=== PATIENT | male | born 1995 | race Caucasian/White ===

== ENCOUNTER 2020-01-09 07:24 | Outpatient (CLI) | payer OTHER ==
--- NOTE | 2020-01-09 09:19 | MRI ---
Exam: Pelvis MRI without IV contrast: HISTORY: Sports hernia, left groin pain for about 4 months FINDINGS: There is a small thin focus of abnormal T2 hyperintensity at the insertion of the left common adducto r tendon. No evidence for abnormal marrow signal. No evidence for adjacent peritendinous or intramuscular strain. No evidence for associated osteitis pubis. IMPRESSION: Small linear focus of stripping or tearing of the left common adductor tendon pubis insertion. No nicolle dence for associated abnormal marrow signal or peritendinous or intramuscular strain.
== END 2020-01-09 07:25 | disposition home or self-care (01) ==
LOC: BICMRI 07:24
PROVIDERS: ATTEND Surgery
DX: S39.81XA Other specified injuries of abdomen, initial encounter (principal)
CPT/HCPCS: 72195

== ENCOUNTER 2020-01-15 06:13 | Outpatient (CLI) | payer OTHER ==
[2020-01-15 10:54] LABS: #Monocytes 0.6 thou/uL (0.11-0.59); #Neutrophils 7.2 thou/uL (1.40-6.50); %Basophils 0.3 % (0.0-1.0); %Eosinophils 0.4 % (0.0-10.0); %Lymphocytes 20.3 % (21.0-51.0); %Monocytes 6.3 % (0.0-10.0); %Neutrophils 72.7 % (42.0-75.0); Hemoglobin 14.9 g/dL (14.0-18.0); Mean Corpuscular HGB CONC 34.1 g/dL (32.0-36.0); Mean Corpuscular Hemoglobin 30.3 pg (27.0-31.0); Mean Platelet Volume 8.1 fL (7.4-10.4); Platelet Count 233 thou/uL (130-400); RBC Distribution Width 11.4 % (11.5-14.5); Red Blood Cell (RBC) Count 4.93 mill/uL (4.70-6.10); White Blood Cell (WBC) Count 9.9 thou/uL (4.8-10.8)
== END 2020-01-15 06:14 | disposition home or self-care (01) ==
LOC: LABBT 06:13
PROVIDERS: ATTEND Surgery
DX: Z01.812 Encounter for preprocedural laboratory examination (principal); K46.9 Unspecified abdominal hernia without obstruction or gangrene
CPT/HCPCS: 85025

== ENCOUNTER 2020-01-17 10:34 | Day surgery (SDC) | payer OTHER ==
[2020-01-15 10:23] VITALS: BMI 27.0
[2020-01-17] MEDS ORDERED: Ondansetron PF 4 MG/2 ML Vial ONE (11:23)
[2020-01-17] MEDS ORDERED: Dexamethasone 20 MG/5 ML VIAL ONE (11:23)
[2020-01-17] MEDS ORDERED: PROPOFOL 200 MG/20 ML VIAL ONE (11:23)
[2020-01-17] MEDS ORDERED: Lidocaine 1% PF 5 ML VIAL ONE (11:23)
[2020-01-17] MEDS ORDERED: Ketorolac Tromethamine 30 MG/ML VIAL ONE (11:23)
[2020-01-17] MEDS ORDERED: Fentanyl 100 MCG/2 ML VIAL ONE (11:43)
[2020-01-17] MEDS ORDERED: Bupivacaine 0.25% HCL 30 ML VIAL ONE (11:52)
[2020-01-17] MEDS ORDERED: Lidocaine 1% w/Epinephrine 1:100K 20 ML VIAL ONE (11:52)
[2020-01-17] MEDS ORDERED: Midazolam HCl 2 mg/2 ml Vial ONE (12:09)
[2020-01-17] MEDS ORDERED: HYDROcodone/Acetaminophen 5/325 mg Tablet ONE (13:39)
--- NOTE | 2020-01-17 15:10 | OP ---
DATE OF PROCEDURE: 01/17/2020 PREOPERATIVE DIAGNOSIS: Left sports hernia. PROCEDURE PERFORMED: Left sports hernia repair with mesh. INDICATIONS: A 24-year-old male, who while swimming had a sudden tear in the left groin. He underwent an MRI that showed a tear of the rectus insertion and tried resting, no help. Non-steroidals, no help. FINDINGS: There was some bruising on that area. DESCRIPTION OF PROCEDURE: After informed consent was obtained, the patient was taken to the operating room, given general mask anesthesia, placed in the supine position. His left groin was prepped and draped in usual fashion. Local anesthesia was infiltrated subcutaneously and deep. A transverse left inguinal incision was performed, subcu divided sharply. The fascia was incised in direction of its fibers to the external ring. The spermatic cord was isolated with a Albert drain. The floor was inspected. There was no direct hernia nor indirect hernia as well. There was some bruising at the lateral aspect of that left rectus insertion. It was only a partial tear. A mesh patch was then sutured to the pubic tubercle to buttress this area. It was tucked under the external oblique fascia laterally. A notch was cut out for the spermatic cord. Hemostasis was assured. The external oblique fascia closed with a running 3-0 Vicryl Madeline was closed with interrupted 3-0 Vicryl and skin closed with a running subcuticular 4-0 Rapide. Steri-Strips applied. Sterile bandage applied. The patient tolerated the procedure well, transferred to Recovery in good condition. Sponge and needle count verified correct x2. Job ID: [id number]
== END 2020-01-17 15:15 | disposition home or self-care (01) ==
LOC: SDC 10:34
PROVIDERS: ATTEND Surgery
PROC: 0WUF0JZ Supplement Abdominal Wall with Synthetic Substitute, Open Approach (ICD-10-PCS; principal; 2020-01-17)
DX: S39.011A Strain of muscle, fascia and tendon of abdomen, initial encounter (principal)
CPT/HCPCS: C1781; J1100; J1885; J2001; J2250; J2405; J2704; J3010; S0020